=== PATIENT | male | born 1985 | race Two or more races ===

== ENCOUNTER 2025-02-14 22:10 | Emergency (ER) | payer BC, SELFPAY ==
[2025-02-14 22:12] VITALS: BMI 43.4
[2025-02-14 22:40] VITALS: BP 150/90; PULSE 88; RESP 20; TEMP 36.8; O2SAT 97
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
== END 2025-02-14 23:41 | disposition home or self-care (01) ==
LOC: SERX 23:35
PROVIDERS: Emergency Provider Emergency Medicine; PCP Family Medicine
DX: L03.115 Cellulitis of right lower limb (principal)
CPT/HCPCS: 99282; A9270